=== PATIENT | male | born 1950 | race Caucasian/White ===

== ENCOUNTER 2017-07-30 13:58 | Inpatient (IN) | payer MEDICARE, MEDICAID ==
[~2017-07-30] VITALS: Ht 167.6 cm; Wt 75.0 kg
[~2017-07-30 13:58] MED LIST: NO HOME MEDS
[2017-07-30] MEDS ORDERED: normal saline 1000ML IV soln IVB ONE (14:15)
[2017-07-30 14:21] LABS: INR 0.9 INR; PARTIAL THROMBOPLASTIN TIME 24 SECONDS (22-32); PROTHROMBIN TIME 9.8 SECONDS (9.0-12.0)
[2017-07-30 14:23] LABS: BASOPHILS % (AUTO) 0.4 % (0-1); EOSINOPHILS # (AUTO) 0.1 X10'3 (0-0.9); EOSINOPHILS % (AUTO) 1.3 % (0-6); HEMATOCRIT 46.3 % (42.0-52.0); HEMOGLOBIN 15.7 g/dl (14.0-17.9); LYMPHOCYTES # (AUTO) 2.4 X10'3 (1.1-4.8); LYMPHOCYTES % (AUTO) 23.3 % (21-51); MEAN CORPUSCULAR HEMOGLOBIN 32.6 PG (27.0-31.0); MEAN CORPUSCULAR HGB CONC 33.8 % (33.0-36.5); MEAN CORPUSCULAR VOLUME 96.4 FL (78-98); MONOCYTES # (AUTO) 0.8 X10'3 (0-0.9); MONOCYTES % (AUTO) 8.1 % (2-12); NEUTROPHILS # (AUTO) 6.8 X10'3 (1.8-7.7); NEUTROPHILS % (AUTO) 66.9 % (42-75); PLATELET COUNT 301 X10'3 (140-440); RED CELL DISTRIBUTION WIDTH 13.6 % (11.5-14.5); WHITE BLOOD COUNT 10.1 X10'3 (4.5-11.0)
[2017-07-30 14:39] LABS: ALANINE AMINOTRANSFERASE 25 U/L (12-78); ALBUMIN 3.7 G/DL (3.4-5.0); ALBUMIN/GLOBULIN RATIO 0.9 (1.1-1.5); ALKALINE PHOSPHATASE 125 IU/L (46-116); ANION GAP 11 (8-16); ASPARTATE AMINO TRANSFERASE 22 U/L (10-37); BILIRUBIN,TOTAL 0.8 MG/DL (0.1-1.0); BLOOD UREA NITROGEN 22 MG/DL (7-18); BUN/CREATININE RATIO 19.6 (5.4-32.0); CALCIUM 9.4 MG/DL (8.5-10.1); CHLORIDE 103 MMOL/L (99-107); CREATININE 1.12 MG/DL (0.60-1.10); GLUCOSE 116 MG/DL (70-104); POTASSIUM 3.8 MMOL/L (3.5-5.1); SODIUM 139 MMOL/L (135-145); TOTAL PROTEIN 7.6 G/DL (6.4-8.2); eGFR 65 ML/MIN
[2017-07-30] MEDS ORDERED: heparin 10,000 units/1 ML INJ IV ONE ×2 (14:40→14:55)
[2017-07-30] MEDS ORDERED: magnesium hydroxide 30ml (MOM) UD suspension PO PRN (15:00)
[2017-07-30] MEDS ORDERED: magnesium 4gm in 100ml NS 100 ML IV PRN (15:00)
[2017-07-30] MEDS ORDERED: magnesium Cl slow-release 64mg tablet PO PRN (15:00)
[2017-07-30] MEDS ORDERED: morphine 4 MG/ML inj SYRINge IV PRN ×2 (15:00)
[2017-07-30] MEDS ORDERED: diphenhydrAMINE 25mg capsule PO PRN (15:00)
[2017-07-30] MEDS ORDERED: HYDROcodone/acetaminophen 10/325mg tab PO PRN (15:00)
[2017-07-30] MEDS ORDERED: mag hydrox/Alum hydrox/simeth 30ml oral suspension PO PRN (15:00)
[2017-07-30] MEDS ORDERED: ondansetron/PF 4mg/2ml inj IV PRN (15:00)
[2017-07-30] MEDS ORDERED: potassium Cl 20 mEq SR tablet PO PRN ×2 (15:00)
[2017-07-30] MEDS ORDERED: HYDROcodone/acetaminophen 5mg/325mg tablet PO PRN (15:00)
[2017-07-30] MEDS: K and/or MAG REPLACEMENT MC SCH (15:00)
[2017-07-30] MEDS ORDERED: acetaminophen 325mg tablet PO PRN ×2 (15:00)
[2017-07-30] MEDS ORDERED: potassium Cl 40MEQ/NS 500ml 500 ML IV PRN ×2 (15:00)
[2017-07-30] MEDS ORDERED: magnesium 1gm/100ml D5W IVPB 50 ML IV PRN (15:00)
[2017-07-30 15:23] LABS: HEMOGLOBIN A1C 5.9 % (4.5-6.2)
[2017-07-30] MEDS ORDERED: heparin 10,000 units/1 ML INJ IV PRN (17:45)
[2017-07-30 18:36] VITALS: BP 123/73
[2017-07-30 21:00] VITALS: BP 121/71
[2017-07-30] MEDS ORDERED: temazepam 15mg capsule PO PRN (21:00)
[2017-07-30 22:00] VITALS: BP 118/66
[2017-07-30] MEDS: carVEDilol 3.125mg tablet PO SCH (23:24)
[2017-07-30] MEDS: normal saline 1000ml 1,000 ML IV SCH (23:52)
[2017-07-31] VITALS (16 sets, daily range): BP systolic 100–136; BP diastolic 40–75
[2017-07-31] MEDS: tirofiban 5mg in NS 100mL 100 ML IV SCH ×2 (00:47→05:06)
[2017-07-31] MEDS: normal saline 1000ml 1,000 ML IV SCH ×3 (00:58→20:58)
[2017-07-31 03:15] LABS: BASOPHILS # (AUTO) 0.1 X10'3 (0-0.2); BASOPHILS % (AUTO) 0.7 % (0-1); EOSINOPHILS # (AUTO) 0.1 X10'3 (0-0.9); EOSINOPHILS % (AUTO) 0.5 % (0-6); HEMATOCRIT 37.7 % (42.0-52.0); HEMOGLOBIN 13.1 g/dl (14.0-17.9); LYMPHOCYTES # (AUTO) 2.7 X10'3 (1.1-4.8); LYMPHOCYTES % (AUTO) 22.8 % (21-51); MEAN CORPUSCULAR HEMOGLOBIN 33.2 PG (27.0-31.0); MEAN CORPUSCULAR HGB CONC 34.9 % (33.0-36.5); MEAN CORPUSCULAR VOLUME 95.3 FL (78-98); MEAN PLATELET VOLUME 6.6 FL (7.4-10.4); MONOCYTES # (AUTO) 1.1 X10'3 (0-0.9); MONOCYTES % (AUTO) 8.9 % (2-12); NEUTROPHILS # (AUTO) 7.9 X10'3 (1.8-7.7); NEUTROPHILS % (AUTO) 67.1 % (42-75); PLATELET COUNT 261 X10'3 (140-440); RED BLOOD COUNT 3.96 X10'6 (4.70-6.10); RED CELL DISTRIBUTION WIDTH 13.7 % (11.5-14.5); WHITE BLOOD COUNT 11.8 X10'3 (4.5-11.0)
[2017-07-31 03:25] LABS: PARTIAL THROMBOPLASTIN TIME 45 SECONDS (22-32); PROTHROMBIN TIME 9.9 SECONDS (9.0-12.0)
[2017-07-31 03:29] LABS: ALANINE AMINOTRANSFERASE 34 U/L (12-78); ALBUMIN 2.8 G/DL (3.4-5.0); ALBUMIN/GLOBULIN RATIO 0.8 (1.1-1.5); ALKALINE PHOSPHATASE 102 IU/L (46-116); ANION GAP 8 (8-16); ASPARTATE AMINO TRANSFERASE 139 U/L (10-37); BILIRUBIN,TOTAL 0.6 MG/DL (0.1-1.0); BLOOD UREA NITROGEN 17 MG/DL (7-18); BUN/CREATININE RATIO 21.5 (5.4-32.0); CALCIUM 8.4 MG/DL (8.5-10.1); CHLORIDE 109 MMOL/L (99-107); CREATININE 0.79 MG/DL (0.60-1.10); GLUCOSE 105 MG/DL (70-104); SODIUM 140 MMOL/L (135-145); TOTAL CARBON DIOXIDE 23.4 MMOL/L (24-32); TOTAL PROTEIN 6.1 G/DL (6.4-8.2); eGFR > 90 ML/MIN
[2017-07-31 03:32] LABS: CHOL/HDL RATIO 2.9 (0.00-4.99); CHOLESTEROL 160 MG/DL (0-200); HDL CHOLESTEROL 55 MG/DL (35-60); LDL CHOLESTEROL 93 MG/DL (50-100); MAGNESIUM 1.6 MG/DL (1.5-2.4); PHOSPHORUS 2.8 MG/DL (2.3-4.5); TRIGLYCERIDES 53 MG/DL (20-135)
[2017-07-31] MEDS ORDERED: LIDOcaine 1% w/EPI 1:100,000 30ml vial (MDV) ONE (07:23)
[2017-07-31] MEDS ORDERED: midazolam 2 mg/2 ml injection ONE (07:23)
[2017-07-31] MEDS ORDERED: fentaNYL/PF 50MCG/1 ML 2ML syringe ONE (07:23)
[2017-07-31] MEDS ORDERED: iohexol 350MG/ML 100ml bottle IV ONE ×2 (07:23→08:05)
[2017-07-31] MEDS: K and/or MAG REPLACEMENT MC SCH (08:00)
[2017-07-31] MEDS ORDERED: iohexol 350 MG/ML 50ML vial IV ONE (08:05)
[2017-07-31] MEDS ORDERED: heparin 1,000unit/ml 10ml vial 10 ML ONE (08:21)
[2017-07-31] MEDS ORDERED: ticagrelor 90mg tablet ONE (08:28)
[2017-07-31] MEDS ORDERED: nitroGLYCERIN 0.4mg SUBLingual tab SL PRN (09:10)
[2017-07-31] MEDS ORDERED: OXAZEpam 15mg capsule PO PRN (09:10)
[2017-07-31 10:08] LABS: CHOL/HDL RATIO 2.8 (0.00-4.99); CHOLESTEROL 160 MG/DL (0-200); HDL CHOLESTEROL 58 MG/DL (35-60); LDL CHOLESTEROL 88 MG/DL (50-100); TRIGLYCERIDES 41 MG/DL (20-135)
[2017-07-31] MEDS: carVEDilol 3.125mg tablet PO SCH ×2 (11:10→20:50)
[2017-07-31] MEDS: aspirin 81mg tab.chew PO SCH (11:10)
[2017-07-31] MEDS: atorvastatin 20mg tablet PO SCH (11:10)
[2017-07-31] MEDS: nicotine 21mg patch - 24 hr TD SCH (14:56)
[2017-07-31] MEDS ORDERED: proCHLORperazine 10 MG/2 ml inj IV PRN (19:20)
[2017-07-31] MEDS: ticagrelor 90mg tablet PO SCH (20:50)
[2017-08-01 02:00] VITALS: BP 112/57
[2017-08-01 05:52] LABS: BASOPHILS % (AUTO) 0.3 % (0-1); EOSINOPHILS # (AUTO) 0.1 X10'3 (0-0.9); EOSINOPHILS % (AUTO) 1.4 % (0-6); HEMOGLOBIN 12.7 g/dl (14.0-17.9); LYMPHOCYTES # (AUTO) 2.2 X10'3 (1.1-4.8); LYMPHOCYTES % (AUTO) 22.4 % (21-51); MEAN CORPUSCULAR HGB CONC 34.4 % (33.0-36.5); MEAN CORPUSCULAR VOLUME 95.7 FL (78-98); MEAN PLATELET VOLUME 6.9 FL (7.4-10.4); MONOCYTES # (AUTO) 1.2 X10'3 (0-0.9); MONOCYTES % (AUTO) 12.1 % (2-12); NEUTROPHILS # (AUTO) 6.1 X10'3 (1.8-7.7); NEUTROPHILS % (AUTO) 63.8 % (42-75); PLATELET COUNT 240 X10'3 (140-440); RED BLOOD COUNT 3.86 X10'6 (4.70-6.10); RED CELL DISTRIBUTION WIDTH 13.8 % (11.5-14.5); WHITE BLOOD COUNT 9.6 X10'3 (4.5-11.0)
[2017-08-01 06:00] VITALS: BP 117/68
[2017-08-01 06:15] LABS: ALANINE AMINOTRANSFERASE 34 U/L (12-78); ALBUMIN 2.7 G/DL (3.4-5.0); ALBUMIN/GLOBULIN RATIO 0.8 (1.1-1.5); ALKALINE PHOSPHATASE 97 IU/L (46-116); ANION GAP 7 (8-16); ASPARTATE AMINO TRANSFERASE 92 U/L (10-37); BLOOD UREA NITROGEN 12 MG/DL (7-18); BUN/CREATININE RATIO 13.8 (5.4-32.0); CHLORIDE 109 MMOL/L (99-107); CREATININE 0.87 MG/DL (0.60-1.10); GLUCOSE 95 MG/DL (70-104); MAGNESIUM 1.8 MG/DL (1.5-2.4); PHOSPHORUS 2.4 MG/DL (2.3-4.5); POTASSIUM 3.8 MMOL/L (3.5-5.1); SODIUM 143 MMOL/L (135-145); TOTAL CARBON DIOXIDE 27.5 MMOL/L (24-32); eGFR 88 ML/MIN
[2017-08-01] MEDS: normal saline 1000ml 1,000 ML IV SCH (06:58)
[2017-08-01] MEDS: K and/or MAG REPLACEMENT MC SCH (08:00)
[2017-08-01] MEDS ORDERED: ticagrelor 90mg tablet PO SCH (08:00)
[2017-08-01] MEDS: ticagrelor 90mg tablet PO SCH (08:03)
[2017-08-01] MEDS: atorvastatin 20mg tablet PO SCH (08:03)
[2017-08-01] MEDS: aspirin 81mg tab.chew PO SCH (08:04)
[2017-08-01] MEDS: nicotine 21mg patch - 24 hr TD SCH (08:04)
[2017-08-01] MEDS: carVEDilol 3.125mg tablet PO SCH (08:04)
[2017-08-01] MEDS ORDERED: NICO-687 TD (09:49)
[2017-08-01] MEDS ORDERED: ATOR20TA66 PO (09:49)
[2017-08-01] MEDS ORDERED: COR3.125T PO (09:49)
[2017-08-01] MEDS ORDERED: ASPI-1265 PO (09:49)
[2017-08-01] MEDS ORDERED: NITR0.4T51 SL (09:49)
[2017-08-01] MEDS ORDERED: TICA90TA PO (09:49)
== END 2017-08-01 10:40 | disposition home or self-care (01) | DRG 246 ==
LOC: EDBD 13:58 → ER 14:00 → ED HOLD 14:58 → EDBEDREQ 15:57 → PCU 3S 17:25
PROVIDERS: ADMIT Family Medicine; ATTEND Family Medicine
PROC: 027034Z Dilation of Coronary Artery, One Artery with Drug-eluting Intraluminal Device, Percutaneous Approach (ICD-10-PCS; principal; 2017-07-31)
PROC: 4A023N7 Measurement of Cardiac Sampling and Pressure, Left Heart, Percutaneous Approach (ICD-10-PCS; 2017-07-31)
PROC: B2111ZZ Fluoroscopy of Multiple Coronary Arteries using Low Osmolar Contrast (ICD-10-PCS; 2017-07-31)
PROC: B2151ZZ Fluoroscopy of Left Heart using Low Osmolar Contrast (ICD-10-PCS; 2017-07-31)
DX: I21.4 Non-ST elevation (NSTEMI) myocardial infarction (principal); N17.0 Acute kidney failure with tubular necrosis; E86.0 Dehydration; J44.9 Chronic obstructive pulmonary disease, unspecified; F17.210 Nicotine dependence, cigarettes, uncomplicated; Z79.82 Long term (current) use of aspirin; Z79.899 Other long term (current) drug therapy; Z79.01 Long term (current) use of anticoagulants; Z80.1 Family history of malignant neoplasm of trachea, bronchus and lung; Z82.49 Family history of ischemic heart disease and other diseases of the circulatory system; Z71.6 Tobacco abuse counseling
CPT/HCPCS: 93306; 93458; 99291; C9606; 36415; 71045; 80053; 80061; 83036; 83735; 84100; 84484; 85025; 85610; 85730; 93005; 99152; 99153; A4620; A6257; A6449; C1725; C1760; C1769; C1874; C9600; J1644; J2250; J3010; J3246; J3490; J7030; Q9967

== ENCOUNTER 2023-05-15 21:51 | Emergency (ER) | payer MEDICARE, MEDICAID ==
[~2023-05-15] VITALS: Ht 170.2 cm; Wt 79.5 kg
[~2023-05-15 21:51] MED LIST changes: +ASPI-1265 PO; +ATOR20TA66 PO; +COR3.125T PO; +NICO-687 TD; +NITR0.4T51 SL; -NO HOME MEDS; +TICA90TA PO
[2023-05-15 22:00] VITALS: BP 139/85; PULSE 109; RESP 20; TEMP 98.2; O2SAT 94
[2023-05-15 23:33] LABS: HEMOGLOBIN 14.9 g/dl (14.0-17.9); MEAN PLATELET VOLUME 6.9 FL (7.4-10.4); WHITE BLOOD COUNT 12.4 X10'3 (4.5-11.0)
[2023-05-15 23:35] LABS: BASOPHILS % (AUTO) 0.3 % (0-1); EOSINOPHILS % (AUTO) 0 % (0-6); LYMPHOCYTES # (AUTO) 1.1 X10'3 (1.1-4.8); LYMPHOCYTES % (AUTO) 8.8 % (21-51); MEAN CORPUSCULAR HEMOGLOBIN 31.8 PG (27.0-31.0); MEAN CORPUSCULAR VOLUME 93.6 FL (78-98); MONOCYTES # (AUTO) 1.3 X10'3 (0-0.9); MONOCYTES % (AUTO) 10.5 % (2-12); NEUTROPHILS % (AUTO) 80.4 % (42-75); PLATELET COUNT 250 X10'3 (140-440); RED CELL DISTRIBUTION WIDTH 14.1 % (11.5-14.5)
[2023-05-15 23:44] LABS: ALANINE AMINOTRANSFERASE 24 U/L (12-78); ALBUMIN 3.2 G/DL (3.4-5.0); ALBUMIN/GLOBULIN RATIO 0.8 (1.1-1.5); ALKALINE PHOSPHATASE 100 IU/L (46-116); ANION GAP 10 (8-16); ASPARTATE AMINO TRANSFERASE 16 U/L (10-37); BILIRUBIN,TOTAL 2.1 MG/DL (0.1-1.0); BLOOD UREA NITROGEN 17 MG/DL (7-18); BUN/CREATININE RATIO 14.9 (10.0-20.0); CALCIUM 8.9 MG/DL (8.5-10.1); CHLORIDE 104 MMOL/L (99-107); CREATININE 1.14 MG/DL (0.60-1.10); GLUCOSE 127 MG/DL (70-104); POTASSIUM 3.6 MMOL/L (3.5-5.1); SODIUM 139 MMOL/L (135-145); TOTAL CARBON DIOXIDE 25.1 MMOL/L (24-32); TOTAL PROTEIN 7.3 G/DL (6.4-8.2); eCRCL 54 ML/MIN; eGFR 63 ML/MIN
[2023-05-15 23:51] LABS: PRO BRAIN NATRIURETIC PEPTIDE 509 PG/ML (0-125)
[2023-05-16 00:43] LABS: PLATELET ESTIMATE NORMAL; TOTAL CELLS COUNTED 100
== END 2023-05-16 04:07 | disposition left against medical advice (07) ==
LOC: ER 21:52
DX: R07.89 Other chest pain (principal); R06.02 Shortness of breath; Z53.21 Procedure and treatment not carried out due to patient leaving prior to being seen by health care provider
CPT/HCPCS: 36415; 71045; 80053; 83880; 84484; 85007; 85025; 93005; 99281